=== PATIENT | male | born 1940 | race Caucasian/White ===

== ENCOUNTER → 2017-05-23 | Outpatient (CLI) | payer OTHER | LOC: CIMAGING 11:16 | PROVIDERS: ATTEND Family Medicine | DX: M19.011 Primary osteoarthritis, right shoulder (principal); M79.601 Pain in right arm; R29.898 Other symptoms and signs involving the musculoskeletal system | CPT/HCPCS: 73030-PO; 73060-PO ==

== ENCOUNTER → 2017-06-28 | Outpatient (CLI) | payer OTHER | LOC: FIMAGING 07:39 | PROVIDERS: ATTEND Family Medicine | DX: S46.011A Strain of muscle(s) and tendon(s) of the rotator cuff of right shoulder, initial encounter (principal); S46.111A Strain of muscle, fascia and tendon of long head of biceps, right arm, initial encounter; W19.XXXA Unspecified fall, initial encounter ==

== ENCOUNTER 2018-07-11 12:03 | Day surgery (SDC) | payer OTHER ==
--- NOTE | 2018-07-11 09:30 | PDHPUP ---
History & Physical Update H&P update statement: This history and physical update is based on an assessment of the patient which was completed after admission or registration (within 24 hours), but prior to the surgery/procedure. H&P update: H&P reviewed & patient examined, no change in patient's condition since H&P completed
[2018-07-11] MEDS ORDERED: ceFAZolin 2 GM/DEXTROSE 100 ML IV ONE (12:11)
[2018-07-11] MEDS ORDERED: LR 1,000 ML IV ONE (12:12)
[2018-07-11] MEDS ORDERED: CEFAZOLIN 2 GM/DEXTROSE/100 ML BAG IV ONE (12:24)
[2018-07-11] MEDS ORDERED: BUPIVACAINE/EPI 0.25% 30 ML SDV ONE (12:42)
--- NOTE | 2018-07-11 15:21 | PDANEPAE ---
ANE History of Present Illness B lap ing hernia, DaVinci assisted ANE Past Medical History - Cardiovascular History Hx Hypertension: No Hx Arrhythmias: No Hx Chest Pain: No Hx Coronary Artery / Peripheral Vascular Disease: No Hx CHF / Valvular Disease: No Hx Palpitations: No - Pulmonary History Hx COPD: No Hx Asthma/Reactive Airway Disease: No Hx Recent Upper Respiratory Infection: No Hx Oxygen in Use at Home: No Hx Sleep Apnea: No Sleep Apnea Screening Result - Last Documented: Negative Pulmonary History Comment: HAS DIFFICULTY SLEEPING ON HIS BACK OBSTRUCTS AIRWAY. SEASONAL ALLERGIES - Neurologic History Hx Cerebrovascular Accident: No Hx Seizures: No - Endocrine History Hx Diabetes: No - Renal History Hx Renal Disorders: Yes Renal History Comment: BPH. ELEVATED PSA - Liver History Hx Hepatic Disorders: No - Neurological & Psychiatric Hx Hx Neurological and Psychiatric Disorders: No - Cancer History Hx Cancer: No - Congenital Disorder History Hx Congenital Disorders: No - GI History Hx Gastrointestinal Disorders: No - Other Health History Other Health History: CERVICAL DISC DX. OSTEOPENIA. OSTEOPOROSIS. MISSING TEETH - Chronic Pain History Chronic Pain: Yes (CORINNE ING AREA) - Surgical History Prior Surgeries: RT SHLDR RTC 09/02/17. CORINNE CATARACTS. LT QUADRACEPS TENDON REPAIR 12/2012. BX LT 2ND TOES 2009 ANE Review of Systems Review of Systems: - Exercise capacity Exercise capacity: >=4 METS METS (RN): 6 METS ANE Patient History - Allergies Allergies/Adverse Reactions: No Allergies [NKDA] Allergy (Verified 03/12/15 15:50) EGG PLANT Allergy (Severe, Uncoded 03/12/15 15:50) THROAT ITCHES - Home Medications Home medications: home medication list seen and reviewed Home Medications: Terazosin HCl 2 mg PO HS 12/17/12 [Last Taken 07/10/18] - NPO status NPO Status: no food or drink >8 hours NPO Since - Liquids (Date): 07/11/18 NPO Since - Liquids (Time): 10:00 NPO Since - Solids (Date): 07/10/18 NPO Since - Solids (Time): 22:00 - Anes Hx Anes Hx: no prior problems - Smoking Hx Smoking Status: Never smoked Marijuana use: No - Alcohol Use Alcohol Use: None - Family Anes Hx Family Anes Hx: none ANE Labs/Vital Signs - Labs - CBC WBC: reviewed and okay - Vital Signs Blood Pressure: 183/85 Heart Rate: 81 Respiratory Rate: 18 O2 Sat (%): 98 Height: 173.99 cm Weight: 63.503 kg ANE Physical Exam - Airway Neck exam: FROM Mallampati Score: Class 2 Mouth exam: normal dental/mouth exam - Pulmonary Pulmonary: no respiratory distress - Cardiovascular Cardiovascular: regular rate and rhythym - ASA Status ASA Status: II ANE Anesthesia Plan Anesthesia Plan: general endotracheal anesthesia
[2018-07-11] MEDS ORDERED: DEXAMETHASONE 4 MG/ML VIAL ONE (15:40)
[2018-07-11] MEDS ORDERED: fentaNYL 100 MCG/2 ML INJ ONE ×2 (15:40→18:12)
[2018-07-11] MEDS ORDERED: ONDANSETRON 4 MG/2 ML VIAL ONE (15:40)
[2018-07-11] MEDS ORDERED: LIDOCAINE 2% 100 MG/5 ML SYR ONE (15:40)
[2018-07-11] MEDS ORDERED: ROCURONIUM 50 MG/5 ML VIAL ONE (15:40)
[2018-07-11] MEDS ORDERED: PROPOFOL/EMULSION 500 MG/50 ML BOTTLE IV ONE (15:40)
[2018-07-11] MEDS ORDERED: SUGAMMADEX SODIUM 200 MG/2 ML VIAL IVP ONE (17:05)
[2018-07-11] MEDS ORDERED: ePHEDrine SULFATE 25 MG/5 ML SYR ONE (17:06)
--- NOTE | 2018-07-11 17:27 | POSTOPPROG ---
Post Op Note Date of Operation: 07/11/18 Surgeon: Yoel Ordoñez Putty Mixer: MYRIAM Hernandez Anesthesiologist: Brandon Anesthesia: GET(General Endotracheal) Pre-op Diagnosis: Bilateral inguinal hernias Post-op Diagnosis: same Procedure: robot assisted lap inguinal hernia repair reji c mesh Findings: L pantalloon, R Indirect Inf/Abcess present in the surg proc area at time of surgery?: No EBL: Minimal
[2018-07-11] MEDS ORDERED: PROMETHAZINE HCL 25 MG/ML INJ IVP PRN (17:40)
[2018-07-11] MEDS ORDERED: LABETALOL HCL 5 MG/ML 20 ML MDV IVP PRN (17:40)
[2018-07-11] MEDS ORDERED: LR 500 ML IV PRN (17:40)
[2018-07-11] MEDS ORDERED: HYDROCODONE/APAP 5/325 TAB PO PRN (17:40)
[2018-07-11] MEDS ORDERED: PHENYLEPHRINE HCL 100 MCG/ML SYR IVP PRN (17:40)
[2018-07-11] MEDS ORDERED: ONDANSETRON 4 MG/2 ML VIAL IVP PRN (17:40)
[2018-07-11] MEDS ORDERED: ALBUTEROL 3 ML DEYVIAL IH PRN (17:40)
[2018-07-11] MEDS ORDERED: oxyCODONE IR 5 MG TAB PO PRN (17:40)
[2018-07-11] MEDS ORDERED: ACETAMINOPHEN 500 MG TAB PO PRN (17:40)
[2018-07-11] MEDS ORDERED: NALOXONE HCL 0.4 MG/ML INJ IVP PRN (17:40)
[2018-07-11] MEDS ORDERED: MEPERIDINE 25 MG/0.5 ML AMP IVP PRN (17:40)
[2018-07-11] MEDS ORDERED: DEXAMETHASONE 4 MG/ML VIAL IVP PRN (17:40)
[2018-07-11] MEDS ORDERED: fentaNYL 100 MCG/2 ML INJ IVP PRN (17:40)
[2018-07-11] MEDS ORDERED: METOCLOPRAMIDE 10 MG/2 ML VIAL IVP PRN (17:40)
[2018-07-11 19:38] VITALS: BP 151/76
[2018-07-11] MEDS ORDERED: HYDROCODONE/APAP 5/325 TAB ONE (20:07)
--- NOTE | 2018-07-12 12:17 | POSTANESTH ---
Post Anesthetic Evaluation Cardiovascular Status: Normal, Stable Respiratory Status: Normal, Stable Level of Consciousness/Mental Status: Can Participate in Eval Pain Control: Adequate, Prn Tx Ordered Nausea/Vomiting Control: Adequate, Prn Tx Ordered Complications Possibly Related to Anesthesia: None Noted
--- NOTE | 2018-07-16 08:57 | GOP ---
DATE OF OPERATION: 07/11/2018 SURGEON: Yoel Ordoñez MD VERTICA ARCHITECT: Isaura Hernandez, Certified Surgical international first officer. ANESTHESIA: General endotracheal provided ANESTHESIOLOGIST: Bashir Taylor MD. PREOPERATIVE DIAGNOSIS: Vilateral inguinal hernias. POSTOPERATIVE DIAGNOSIS: Vilateral inguinal hernias. PROCEDURE PERFORMED: Robotic-assisted laparoscopic inguinal hernia repair with mesh. FINDINGS: Left-sided pantaloon hernia, right-sided indirect hernia, both successfully reduced and re paired with Bard 3D Light site appropriate mesh. SPECIMENS: None. ESTIMATED BLOOD LOSS: 5 cc specimens. DESCRIPTION OF PROCEDURE: The patient was greeted in the preoperative suite. Once again, risks, nanette efits, and alternatives were discussed. He was then brought back to the operative suite and placed o n the OR table in the supine position. After all anesthesia machines including SCDs were on and func tioning, [employer] time-out was performed. After successful induction of general ane sthesia, the patient's abdomen was prepped and draped in the typical sterile fashion. I commenced th e procedure by making a supraumbilical cutdown through which the Veress needle was passed. Once appr opriate pneumoperitoneum was achieved, I inserted an 8 mm trocar under direct visualization. Once lind ccessfully in the abdomen, I placed two additional 8 mm trocars, one in the right and one in the left upper quadrant. The robot was then successfully docked after the patient was placed in gentle Trend elenburg position. I inspected both groin areas. It was apparent that he had bilateral hernias. I turned my attention first toward the left side where he had a pantaloon hernia, direct and indirect d efects. I scored the peritoneal flap just adjacent to the ASIS all the way medial to the pubic tuber jose miguel. I carried the flap all the way down to the visceral sac and successfully skeletonized the cord structures subsequently reducing both hernias. After successful skeletonization, I brought in a left -sided Bard 3D Light mesh. I had tacked it into place to Tong's ligament as well as medial to the direct defect. It was allowed to lay flat without any kinks. The peritoneum was then closed with a running V-Loc suture. In the same fashion, I turned my attention toward the patient's right side. A gain, the peritoneal flap was made in the similar fashion. There was only an indirect hernia on this side which was small. I successfully reduced this off the cord structures and skeletonized them tila ropriately. After the pocket was appropriately made, I brought my right-sided site-specific mesh in, I tacked it to Tong's ligament with an interrupted Vicryl stitch as well as on the other side of t he inferior epigastric vessels. Again, the peritoneal flap was then closed with a running V-Loc sutu re. I inspected the abdominal cavity and found no other significant pathology. My ports were remove d. I evacuated my pneumoperitoneum. I closed the skin with 4-0 Monocryl over which Dermabond was pl aced. The patient was then extubated in the operative suite and taken to the PACU in satisfactory co ndition. DRAINS: None. COUNTS: All counts were as correct x2. /[id number]/MODL
== END 2018-07-11 20:14 | disposition home or self-care (01) ==
LOC: FSGY 12:03
PROVIDERS: ATTEND Surgery
PROC: 0YUA4JZ Supplement Bilateral Inguinal Region with Synthetic Substitute, Percutaneous Endoscopic Approach (ICD-10-PCS; principal; 2018-07-11 15:35)
PROC: 8E0W4CZ Robotic Assisted Procedure of Trunk Region, Percutaneous Endoscopic Approach (ICD-10-PCS; 2018-07-11 15:35)
DX: K40.20 Bilateral inguinal hernia, without obstruction or gangrene, not specified as recurrent (principal)
CPT/HCPCS: C1781; J0690; J1100; J2001; J2405; J2704; J3010